=== PATIENT | female | born 1985 | race Caucasian/White ===

== ENCOUNTER 2019-05-13 16:01 | Emergency (ER) | payer OTHER ==
[~2019-05-13] VITALS: Ht 154.9 cm; Wt 91.7 kg
[2019-05-13 16:07] VITALS: Ht 154.9 cm; Wt 91.7 kg
[2019-05-13 18:05] VITALS: BP 101/63
== END 2019-05-13 18:49 | disposition home or self-care (01) ==
LOC: ED 16:01
DX: R51 Headache (principal); H92.03 Otalgia, bilateral; H91.93 Unspecified hearing loss, bilateral

== ENCOUNTER 2019-06-20 23:58 | Emergency (ER) | payer OTHER ==
[~2019-06-20] VITALS: Ht 154.9 cm; Wt 90.9 kg
[2019-06-21 00:20] VITALS: Ht 154.9 cm; Wt 90.9 kg
[2019-06-21 04:42] VITALS: BP 128/87
== END 2019-06-21 04:42 | disposition home or self-care (01) ==
LOC: ED 23:58
DX: N12 Tubulo-interstitial nephritis, not specified as acute or chronic (principal); R11.12 Projectile vomiting
CPT/HCPCS: J1885; Q0162